=== PATIENT | male | born 1975 | race Caucasian/White ===

== ENCOUNTER 2017-03-02 07:30 | Emergency (ER) | payer BC ==
[2017-03-02 07:51] VITALS: O2SAT 98
[2017-03-02] MEDS ORDERED: Hydromorphone 1 mg/ml Ampule IM ONE (08:10)
[2017-03-02] MEDS ORDERED: Phenergan 25 MG INJ IM ONE (08:10)
[2017-03-02] MEDS ORDERED: Phenergan 25 MG INJ ONE (08:13)
[2017-03-02] MEDS ORDERED: Hydromorphone 1 mg/ml Ampule ONE (08:14)
--- NOTE | 2017-03-02 08:15 | ERPHSYRPT ---
- History of Present Illness Time Seen by Provider: 03/02/17 08:00 Source: patient Exam Limitations: clinical condition Patient Subjective Stated Complaint: shoulder pain in both shoulders Triage Nursing Assessment: patient got lawnmower stuck friday in ditch and pushed it out, has history of shoulder issues see ortho dr machado, woke up with right shoulder in pain unable to get comfortable sensitive to palpationm, not able to see abnormalities , able to move but rotation above shoulder level is extremely painful. pulses rpesent bilateral cap refil immediate Physician History: PATIENT WITH A HISTORY OF BILATERAL SHOULDER CHRONIC PAIN, LEFT BICEPS TENDON TEAR IN LEFT SHOULDER, WHILE PUSHING MOWER OUT OF DITCH YESTERDAY DEVELOPED SEVERE PAIN IN RIGHT SHOULDER. HAS HAD MULTIPLE MRI OF HIS RIGHT SHOULDER, OFFER EXPLORATORY SURGERY OF HIS RIGHT SHOULDER BY HIS SURGEON. DENIES FALL ONTO HIS SHOULDER, NUMBNESS, WEAKNESS IN HIS EXTEMITY. Occurred: yesterday Method of Injury: sports injury Quality: constant Severity of Pain-Max: moderate Severity of Pain-Current: moderate Extremities Pain Location: shoulder: right Modifying Factors: Improves With: movement Associated Symptoms: none Allergies/Adverse Reactions: No Known Drug Allergies Allergy (Verified 03/02/17 08:21) Home Medications: Alprazolam [Xanax] 2 mg PO 03/02/17 [History] Aspirin/Calcium Carbonate/Mag [Aspirin Buffered 325 mg Tab] 1 tab PO DAILY 03/02 [History] Atorvastatin Calcium [Lipitor 40Mg] 40 mg PO 03/02/17 [History] Hydrocodone Bit/Acetaminophen [Hydrocodon-Acetaminoph 7.5-325] 1 each PO BID 01/13 [History] Sertraline HCl 50 mg [Zoloft 50 mg Tablet] 50 mg PO 03/02/17 [History] Hx Tetanus, Diphtheria Vaccination/Date Given: Yes Hx Influenza Vaccination/Date Given: No Hx Pneumococcal Vaccination/Date Given: Yes Immunizations Up to Date: Yes - Review of Systems Constitutional: No Symptoms Musculoskeletal: Injury, Joint Pain Neurological: No Symptoms - Past Medical History Pertinent Past Medical History: Yes Cardiac History: Myocardial Infarction ([place]), Other Musculoskeletal History: Other History: Other Other Medical History: heart cath adn stents placed Oct 2012, left shoulder has torn bicep tendon in Aug 2016, right shoulder ongoing issues with multiple mris under - Past Surgical History Past Surgical History: Yes Cardiac: Cardiac Catheterization, Cardiac Stent - Social History Smoking Status: Current every day smoker Drug Use: none - Nursing Vital Signs Nursing Vital Signs: Initial Vital Signs Temperature 98.1 F Temperature Source Oral Pulse Rate 86 Respiratory Rate 18 Blood Pressure [] 133/86 Pain Intensity 9 - Physical Exam General Appearance: alert Abdominal Exam: No guarding Back Exam: No vertebral tenderness Shoulder Exam: normal inspection, limited ROM (HEAD OF BICEPS TENDON), soft tissue tenderness Neuro/Tendon Exam: normal sensation, normal motor functions Mental Status Exam: alert, oriented x 3, cooperative Skin Exam: normal color, warm, dry SpO2: 98 Oxygen Delivery: Room Air - Radiology Exams Right Shoulder X-ray Interpretation: Interpreted by me, Negative, No Fracture (NO DISLOCATION) Ordered Tests: Active Orders 24 hr Category Date Time Status Sling Application STAT Care 03/02/17 08:10 Active SHOULDER Stat Exams 03/02/17 08:09 Completed Medication Summary Discontinued Medications Generic Name Dose Route Start Last Admin Trade Name Rufinoq PRN Reason Stop Dose Admin Hydromorphone HCl 1 mg 03/02/17 08:10 03/02/17 08:15 Hydromorphone 1 Mg/Ml Ampule IM 03/02/17 08:11 1 mg STAT ONE Administration Hydromorphone HCl Confirm 03/02/17 08:14 Hydromorphone 1 Mg/Ml Ampule Administered 03/02/17 08:15 Dose 1 mg .ROUTE .STK-MED ONE Promethazine HCl 25 mg 03/02/17 08:10 03/02/17 08:15 Phenergan 25 Mg Inj IM 03/02/17 08:11 25 mg STAT ONE Administration Promethazine HCl Confirm 03/02/17 08:13 Phenergan 25 Mg Inj Administered 03/02/17 08:14 Dose 25 mg .ROUTE .STK-MED ONE - Progress Progress Note: 03/02/17 09:09 PATIENT GIVEN DILAUDID 1MG/PHENERGAN 25MG IM Counseled pt/family regarding: diagnosis, rad results - Departure Time of Disposition: 09:11 Departure Disposition: Home Clinical Impression: CHRONIC RIGHT SHOULDER PAIN Condition: Stable Critical Care Time: No Referrals: PATRICK QUINONES [Primary Care Provider] - Additional Instructions: WEAR SLING FOR COMFORT FOR 3-4 DAYS THEN REMOVE. CONSULT YOUR PRIMARY CARE PHYSICIAN AND ORTHOPEDIC SURGEON FOR EVALUATION. TORADOL 10MG EVERY 6 HOURS FOR PAIN. Prescriptions: Ketorolac Tromethamine [Toradol] 10 mg PO Q6H PRN PRN #20 tablet PRN Reason: Pain
--- NOTE | 2017-03-02 09:13 | XRAY ---
Indication: Right shoulder pain following lifting lawnmower. Comparison: November 29, 2014. 3 views of the right shoulder again demonstrates normal bones, articulations, and soft tissues.
[2017-03-02 09:21] VITALS: BP 126/87; PULSE 80
== END 2017-03-02 09:20 | disposition home or self-care (01) ==
LOC: ED 07:30
DX: M25.511 Pain in right shoulder (principal)
CPT/HCPCS: 73030; 99284; J1170; J2550

== ENCOUNTER 2017-05-13 16:55 | Emergency (ER) | payer BC ==
[2017-05-13 17:15] LABS: Mean Corpuscular Hemoglobin 33.4 pg (26-32); Mean Platelet Volume 11.2 fl (6-9.5); Platelet Count 251 K/mm3 (150-450); Red Blood Count 4.04 M/mm3 (4.1-5.6); Red Cell Distribution Width 13.2 % (11.5-14.0)
[2017-05-13] MEDS ORDERED: Ativan 1 MG PO ONE (17:31)
[2017-05-13] MEDS ORDERED: Zyprexa Zydis 5 MG PO ONE ×4 (17:31→18:08)
[2017-05-13] MEDS ORDERED: Ativan 1 MG ONE (17:35)
--- NOTE | 2017-05-13 17:39 | ERPHSYRPT ---
- History of Present Illness Time Seen by Provider: 05/13/17 17:06 Source: patient, family ( and [id number]), EMS, police (under ID) Patient Subjective Stated Complaint: PT BROUGHT IN BY POLICE AND EMS DUE TO THIS MORNING PT CALLED [facility] POLICE DEPARTMENT DUE TO NOT ACTING APPROPRIATELY. PT THEN TOOK OFF ON FOOT INTO [facility] AND POLICE HAVE BEEN LOOKING FOR HIM THIS MORNING. PT FOUND BY A [facility] ARRIVAL PT NOT ORIENTED. ACCU CHECK 94. PT STATED TO EMS HE HAS BEEN WALKING AROUND FOR 15 DAYS ON A SPIRITUAL WALK. Triage Nursing Assessment: PT PINK, WARM, MOIST. PT ALERT, NOT ORIENTED TO PLACE AND TIME. PUPILS DILATED. REACTIVE. PT CAN FOLLOW COMMANDS. PT CAN ANSER SIMPLE QUESTIONS. DURING TRAIGE PT WILL HAVE TIMES OF RAMBLING SPEACH. Physician History: CC: talking out of his head Hx: 42 y/o male patient of Dr Quinones and Heather Pacheco counselor. He works at [employer]. Has had recent ID a month ago. Has been off work due to administrative leave. reports he has not slept in the past week. Worse today. Hearing voices. Has been talking about unusual things. He asked for a sandwhich and the started walking. Police were called as he was talking to a tree. Pt states he hears voices. He talks tangentially about brachial compresses. He thinks year is 2020. Denies injury. Slight headache. No vomiting or diarrhea. No chest or abd pain. denies hx of this in the past. Not thought to use drugs. Has not been eating past week. Timing/Duration: week(s) (1) Allergies/Adverse Reactions: No Known Drug Allergies Allergy (Verified 05/13/17 18:34) Home Medications: Alprazolam [Xanax] 2 mg PO UD 03/02/17 [History] Aspirin/Calcium Carbonate/Mag [Aspirin Buffered 325 mg Tab] 1 tab PO DAILY 03/02 [History] Atorvastatin Calcium [Lipitor 40Mg] 40 mg PO DAILY 03/02/17 [History] Hydrocodone Bit/Acetaminophen [Hydrocodon-Acetaminoph 7.5-325] 1 each PO BID 01/13 [History] Sertraline HCl 50 mg [Zoloft 50 mg Tablet] 50 mg PO DAILY 03/02/17 [History] Hx Tetanus, Diphtheria Vaccination/Date Given: Yes (UP TO DATE) Hx Influenza Vaccination/Date Given: No Hx Pneumococcal Vaccination/Date Given: No Immunizations Up to Date: Yes - Past Medical History Pertinent Past Medical History: Yes Cardiac History: Coronary Artery Disease, Hypertension Musculoskeletal History: Other History: Other Other Medical History: heart cath adn stents placed Oct 2012, left shoulder has torn bicep tendon in Aug 2016, right shoulder ongoing issues with multiple mris under - Past Surgical History Past Surgical History: Yes Cardiac: Cardiac Catheterization, Cardiac Stent - Social History Smoking Status: Current every day smoker How long have you smoked: 30 Exposure to second hand smoke: No Drug Use: none Patient Lives Alone: No ([employer] Install[employer]) - Review of Systems Constitutional: No Fever, No Chills Eyes: No Symptoms Ears, Nose, & Throat: No Symptoms Respiratory: No Cough, No Dyspnea Cardiac: No Chest Pain Abdominal/Gastrointestinal: No Abdominal Pain, No Nausea, No Vomiting, No Diarrhea Musculoskeletal: No Back Pain, No Neck Pain, No Fall, No Injury Skin: No Rash Neurological: Headache (slight), No Focal Weakness Psychological: Emotional Lability, Hallucinations, Memory Loss, No Alcohol Abuse , No Drug Abuse, No Suicidal Ideations All Other Systems: Reviewed and Negative - Nursing Vital Signs Nursing Vital Signs: Initial Vital Signs Temperature 98.8 F 05/13/17 17:00 Pulse Rate 85 05/13/17 17:00 Respiratory Rate 20 05/13/17 17:00 Blood Pressure 128/75 05/13/17 17:00 O2 Sat by Pulse Oximetry 96 05/13/17 17:00 Pain Scale Pain Intensity 0 - Physical Exam General Appearance: alert, other (anxious appearing, moving a lot) Eyes, Ears, Nose, Throat Exam: normal ENT inspection, moist mucous membranes Neck Exam: normal inspection, non-tender, supple Respiratory Exam: normal breath sounds, lungs clear Cardiovascular Exam: regular rate/rhythm Gastrointestinal/Abdominal Exam: soft, No tenderness, No distention Current Suicidality: denies suicide plan Neurological Exam: alert, anxious Appearance: impaired insight Behavior/Eye Contact/Speech: alert & cooperative Thoughts/Hallucinations: auditory hallucinations, delusions, flight of ideas, paranoid Skin Exam: warm, dry, No rash SpO2 Interpretation: normal SpO2: 96 Oxygen Delivery: Room Air - Course Nursing assessment & vital signs reviewed: Yes - CT Exams head CT Interpretation: Tele-radiologist Report (tiny right external capsule lacunar infarct, remaining head CT negative) Ordered Tests: Active Orders 24 hr Category Date Time Status Cause Analyst STAT Care 05/13/17 19:15 Active Clean Catch Urine Specimen STAT Care 05/13/17 17:06 Active EKG-ER Only STAT Care 05/13/17 19:15 Active IV Insertion STAT Care 05/13/17 17:31 Active HEAD WITHOUT CONTRAST [CT] Stat Exams 05/13/17 17:31 Taken BLOOD CULTURE Stat Lab 05/13/17 18:18 Received CBC W DIFF Stat Lab 05/13/17 17:00 Completed CK-Creatinine Phosphokinase Stat Lab 05/13/17 17:00 Completed CMP Stat Lab 05/13/17 17:00 Completed CSF GLUCOSE Stat Lab 05/13/17 18:14 Ordered CSF PROTEIN Stat Lab 05/13/17 18:14 Ordered CSF, CELL COUNT Stat Lab 05/13/17 18:14 Ordered CULTURE,CSF Stat Lab 05/13/17 18:14 Uncollected CULTURE,URINE Stat Lab 05/13/17 17:31 Received ETHYL ALCOHOL Stat Lab 05/13/17 17:00 Completed Lactic Acid Stat Lab 05/13/17 17:41 Results Manual Differential NC Stat Lab 05/13/17 17:00 Completed UA W/ MICROSCOPIC Stat Lab 05/13/17 17:31 Completed Urine Triage Profile Stat Lab 05/13/17 17:31 Completed Medication Summary Generic Name Dose Route Start Last Admin Trade Name Freq PRN Reason Stop Dose Admin Sodium Chloride 1,000 mls @ 200 mls/hr 05/13/17 17:45 05/13/17 17:35 Sodium Chloride 0.9% 1000 Ml IV 06/12/17 17:44 200 mls/hr .Q5H SALVATORE Administration Sodium Chloride 1,000 mls @ 200 mls/hr 05/13/17 19:00 05/13/17 19:23 Sodium Chloride 0.9% 1000 Ml IV 06/12/17 18:59 200 mls/hr .Q5H SALVATORE Administration Chlorpromazine HCl 50 mg/ 102 mls @ 100 mls/hr 05/13/17 19:13 05/13/17 19:23 Sodium Chloride IV 05/13/17 20:14 100 mls/hr STAT ONE Administration Acyclovir Sodium 750 mg/ 100 mls @ 100 mls/hr 05/13/17 19:22 Dextrose IV 05/13/17 20:21 STAT ONE Ceftriaxone Sodium/Dextrose 2 g in 50 mls @ 100 mls/hr 05/13/17 19:22 Rocephin 2 Gm-D5w 50ml Bag IV 05/13/17 19:51 STAT STA Vancomycin HCl 250 mls @ 167 mls/hr 05/13/17 19:22 Vancomycin 1gm/ Ns 250ml IV 05/13/17 20:51 STAT ONE Discontinued Medications Generic Name Dose Route Start Last Admin Trade Name Freq PRN Reason Stop Dose Admin Chlorpromazine HCl Confirm 05/13/17 19:18 Thorazine 50 Mg Administered 05/13/17 19:19 Dose 50 mg .ROUTE .STK-MED ONE Sodium Chloride 1,000 mls @ 999 mls/hr 05/13/17 18:13 05/13/17 18:16 Sodium Chloride 0.9% 1000 Ml IV 05/13/17 19:13 999 mls/hr .Q1H1M STA Administration Sodium Chloride Confirm 05/13/17 19:18 Sodium Chloride 0.9% 100 Ml Ivpb Administered 05/13/17 19:19 Dose 100 mls @ ud IV .STK-MED ONE Lorazepam 1 mg 05/13/17 17:31 05/13/17 17:35 Ativan 1 Mg PO 05/13/17 17:32 1 mg STAT ONE Administration Lorazepam Confirm 05/13/17 17:35 Ativan 1 Mg Administered 05/13/17 17:36 Dose 1 mg .ROUTE .STK-MED ONE Lorazepam 1 mg 05/13/17 18:07 05/13/17 18:16 Ativan 2 Mg/1 Ml Vial IV 05/13/17 18:08 1 mg STAT ONE Administration Lorazepam Confirm 05/13/17 18:08 Ativan 2 Mg/1 Ml Vial Administered 05/13/17 18:09 Dose 2 mg .ROUTE .STK-MED ONE Olanzapine 5 mg 05/13/17 17:31 05/13/17 17:35 Zyprexa Zydis 5 Mg PO 05/13/17 17:32 5 mg STAT ONE Administration Olanzapine Confirm 05/13/17 17:34 Zyprexa Zydis 5 Mg Administered 05/13/17 17:35 Dose 5 mg PO .STK-MED ONE Olanzapine 5 mg 05/13/17 18:07 05/13/17 18:16 Zyprexa Zydis 5 Mg PO 05/13/17 18:08 5 mg STAT ONE Administration Olanzapine Confirm 05/13/17 18:08 Zyprexa Zydis 5 Mg Administered 05/13/17 18:09 Dose 5 mg PO .STK-MED ONE Lab/Rad Data: Laboratory Result Diagrams 05/13/17 17:00 05/13/17 17:00 Laboratory Results 05/13/17 05/13/17 05/13/17 Range/Units 17:41 17:31 17:31 WBC (4.0-10.5) K/mm3 RBC (4.1-5.6) M/mm3 Hgb (12.5-18.0) gm/dl Hct (42-50) % MCV (78-100) fl MCH (26-32) pg MCHC (32-36) g/dl RDW (11.5-14.0) % Plt Count (150-450) K/mm3 MPV (6-9.5) fl Segmented Neutrophils (36.-66.) % Lymphocytes (Manual) (24-44) % Monocytes (Manual) (0.0-12.0) % Differential Comment Platelet Estimate (NORMAL) Sodium (136-145) mEq/L Potassium (3.5-5.1) mEq/L Chloride (98-107) mEq/L Carbon Dioxide (21-32) mEq/L Anion Gap (5-15) MEQ/L BUN (9-20) mg/dL Creatinine (0.55-1.30) mg/dl Estimated GFR ML/MIN Glucose (70-110) MG/DL Lactic Acid 3.3 H (0.4-2.0) Calcium (8.5-10.1) mg/dL Total Bilirubin (0.2-1.0) mg/dL AST (15-37) U/L ALT (12-78) U/L Alkaline Phosphatase (46-116) U/L Creatine Kinase (39-308) U/L Serum Total Protein (6.4-8.2) gm/dL Albumin (3.4-5.0) g/dL Ur Collection Type VOID Urine Color YELLOW (YELLOW) Urine Appearance CLEAR (CLEAR) Urine pH 5.0 (5-6) Ur Specific Hamilton 1.025 (1.005-1.025) Urine Protein 30 (Negative) Urine Ketones LARGE (NEGATIVE) Urine Blood 50 (0-5) Mayco/ul Urine Nitrite NEGATIVE (NEGATIVE) Urine Bilirubin SMALL (NEGATIVE) Urine Urobilinogen NORMAL (0-1) mg/dL Ur Leukocyte Esterase NEGATIVE (NEGATIVE) Urine Microscopic RBC 2-5 (0-2) /HPF Urine Microscopic WBC 2-5 (0-5) /HPF Ur Epithelial Cells FEW (FEW) /HPF Urine Bacteria MODERATE (NEGATIVE) /HPF Hyaline Casts 2-5 (0-2) /LPF Urine Mucus MANY (NEGATIVE) /HPF Urine Glucose NEGATIVE (NEGATIVE) mg/dL Urine Opiates Level POS. (NEGATIVE) Ur Methadone NEG. (NEGATIVE) Urine Barbiturates NEG. (NEGATIVE) Ur Phencyclidine (PCP) NEG. (NEGATIVE) Urine Amphetamine NEG. (NEGATIVE) U Benzodiazepine Level NEG. (NEGATIVE) Urine Cocaine NEG. (NEGATIVE) Urine Marijuana (THC) NEG. (NEGATIVE) Ethyl Alcohol (0.00-0.01) % Specimen Received 05/13/17 1735 05/13/17 05/13/17 Range/Units 17:00 17:00 WBC 28.0 H* (4.0-10.5) K/mm3 RBC 4.04 L (4.1-5.6) M/mm3 Hgb 13.5 (12.5-18.0) gm/dl Hct 40.4 L (42-50) % MCV 100.0 (78-100) fl MCH 33.4 H (26-32) pg MCHC 33.4 (32-36) g/dl RDW 13.2 (11.5-14.0) % Plt Count 251 (150-450) K/mm3 MPV 11.2 H (6-9.5) fl Segmented Neutrophils 86 H (36.-66.) % Lymphocytes (Manual) 10 L (24-44) % Monocytes (Manual) 4 (0.0-12.0) % Differential Comment NORMAL Platelet Estimate NORMAL (NORMAL) Sodium 138 (136-145) mEq/L Potassium 3.4 L (3.5-5.1) mEq/L Chloride 98 (98-107) mEq/L Carbon Dioxide 20.6 L (21-32) mEq/L Anion Gap 22.9 H (5-15) MEQ/L BUN 15 (9-20) mg/dL Creatinine 1.00 (0.55-1.30) mg/dl Estimated GFR > 60 ML/MIN Glucose 77 (70-110) MG/DL Lactic Acid (0.4-2.0) Calcium 9.8 (8.5-10.1) mg/dL Total Bilirubin 0.70 (0.2-1.0) mg/dL AST 25 (15-37) U/L ALT 28 (12-78) U/L Alkaline Phosphatase 102 (46-116) U/L Creatine Kinase 184 (39-308) U/L Serum Total Protein 8.4 H (6.4-8.2) gm/dL Albumin 4.6 (3.4-5.0) g/dL Ur Collection Type Urine Color (YELLOW) Urine Appearance (CLEAR) Urine pH (5-6) Ur Specific Hamilton (1.005-1.025) Urine Protein (Negative) Urine Ketones (NEGATIVE) Urine Blood (0-5) Mayco/ul Urine Nitrite (NEGATIVE) Urine Bilirubin (NEGATIVE) Urine Urobilinogen (0-1) mg/dL Ur Leukocyte Esterase (NEGATIVE) Urine Microscopic RBC (0-2) /HPF Urine Microscopic WBC (0-5) /HPF Ur Epithelial Cells (FEW) /HPF Urine Bacteria (NEGATIVE) /HPF Hyaline Casts (0-2) /LPF Urine Mucus (NEGATIVE) /HPF Urine Glucose (NEGATIVE) mg/dL Urine Opiates Level (NEGATIVE) Ur Methadone (NEGATIVE) Urine Barbiturates (NEGATIVE) Ur Phencyclidine (PCP) (NEGATIVE) Urine Amphetamine (NEGATIVE) U Benzodiazepine Level (NEGATIVE) Urine Cocaine (NEGATIVE) Urine Marijuana (THC) (NEGATIVE) Ethyl Alcohol < 0.010 (0.00-0.01) % Specimen Received - Progress Progress Note: 05/13/17 18:25 He was given ativan and zyprexa. IVF bolus. He is more agitated, talking out of his head. Low grade fever. Will need lumbar puncture. Consent from . May need ketamine desation if worsens. 05/13/17 18:45 He is on asa and plavix for heart stent. Unsure last dose but likely early this AM. He will need transfer for neuro and psychiatry. Paged Dr Vega at [facility] to consider transfer and further treatment. 05/13/17 19:30 He seemed to worse with ativan. Will hold on LP as he is on asa and plavix. Called Dr Vega hospitalist at [facility] where neurology and psychiatry are available. HE advised cover with abtx, transfer to [facility] ER for reassessment and possible stat brain MRI. Spoke to Dr Garcia who accepts transfer to [facility] ER. Discussed plan and she agrees and accepts. informed of condition and plan. No muscle rigidity to suggest serotonin syndrome or malignant hyperthermia. Unsure if this is toxin induced, primary psychosis or encephalitis. Counseled pt/family regarding: lab results, diagnosis, need for follow-up, rad results - Departure Time of Disposition: 19:32 Departure Disposition: Transfer ([facility] ER) Clinical Impression: Acute psychosis, Encephalitis Condition: Serious Critical Care Time: Yes Critical Care Time(excluding separately billable procedures): 30-74 minutes Referrals: PATRICK QUINONES [Primary Care Provider] -
[2017-05-13 17:43] LABS: ALBUMIN 4.6 g/dL (3.4-5.0); ALKALINE PHOSPHATASE 102 U/L (46-116); ANION GAP 22.9 MEQ/L (5-15); BLOOD UREA NITROGEN 15 mg/dL (9-20); CHLORIDE 98 mEq/L (98-107); Carbon Dioxide 20.6 mEq/L (21-32); Glucose 77 MG/DL (70-110); Potassium 3.4 mEq/L (3.5-5.1); SGOT/AST 25 U/L (15-37); SGPT/ALT 28 U/L (12-78); SODIUM 138 mEq/L (136-145); Total Protein 8.4 gm/dL (6.4-8.2)
[2017-05-13 17:44] LABS: ETHYL ALCOHOL < 0.010 % (0.00-0.01)
[2017-05-13] MEDS ORDERED: Sodium Chloride 0.9% 1000 ML 1,000 ML IV SCH ×2 (17:45→19:00)
[2017-05-13 17:57] LABS: Lactic Acid 3.3 (0.4-2.0)
[2017-05-13 18:01] LABS: Bacteria MODERATE /HPF (NEGATIVE); Bilirubin SMALL (NEGATIVE); Blood 50 Ery/ul (0-5); COMPLETE URINE MICROSCOPIC? YES; Collection Type VOID; Epithelial Cells FEW /HPF (FEW); Glucose NEGATIVE (NEGATIVE); Leukocyte Esterase NEGATIVE (NEGATIVE); Mucus MANY /HPF (NEGATIVE)
[2017-05-13 18:02] LABS: ADD URINE CULTURE? YES (NO)
[2017-05-13] MEDS ORDERED: Ativan 2 MG/1 ML VIAL IV ONE (18:07)
[2017-05-13] MEDS ORDERED: Ativan 2 MG/1 ML VIAL ONE (18:08)
[2017-05-13] MEDS ORDERED: Sodium Chloride 0.9% 1000 ML 1,000 ML IV STA (18:13)
[2017-05-13] MEDS ORDERED: Sodium Chloride 0.9% 1000 ML 1,000 ML ONE ×2 (18:14→19:04)
[2017-05-13 18:59] LABS: Total Cells Counted 100
[2017-05-13 19:00] LABS: Platelet Estimate NORMAL (NORMAL)
[2017-05-13] MEDS ORDERED: THORAZINE 50 MG*** 50 MG in Sodium Chloride 0.9% 100 ML IVPB 100 ML IV ONE (19:13)
[2017-05-13] MEDS ORDERED: THORAZINE 50 MG ONE (19:18)
[2017-05-13] MEDS ORDERED: Sodium Chloride 0.9% 100 ML IVPB 100 ML IV ONE (19:18)
[2017-05-13] MEDS ORDERED: ROCEPHIN 2 Gm-D5w 50ML BAG** 2 G/50 ML IVPB IV STA (19:22)
[2017-05-13] MEDS ORDERED: ZOVIRAX IV ONE (19:22)
[2017-05-13] MEDS ORDERED: Vancomycin 1GM/ Ns 250ML*** 250 ML IV ONE ×2 (19:22→19:52)
[2017-05-13] MEDS ORDERED: D5W MINI IV ONE (19:22)
[2017-05-13] MEDS ORDERED: ROCEPHIN 2 Gm-D5w 50ML BAG** 2 G/50 ML IVPB IV ONE (19:30)
[2017-05-13 20:51] VITALS: BP 118/74; PULSE 108; O2SAT 97
--- NOTE | 2017-05-14 08:30 | XRAY ---
Indication: Confusion. Multiple contiguous axial images obtained through the head without contrast. Comparison: None There is a tiny lacunar infarct in the right external capsule. No acute intracranial hemorrhage, abnormal extra axial fluid collection, or mass effect. Fourth ventricle is midline without hydrocephalus. Baer-white matter differentiation preserved. Bony calvarium intact. Visualized paranasal sinuses and mastoid air cells are clear. Impression: Right external capsule lacunar infarct. No acute intracranial abnormalities. CTDI 70.21
== END 2017-05-13 20:50 | disposition short-term general hospital (02) ==
LOC: ED 16:55
DX: F23 Brief psychotic disorder (principal); G04.90 Encephalitis and encephalomyelitis, unspecified; Z79.899 Other long term (current) drug therapy; Z79.891 Long term (current) use of opiate analgesic
CPT/HCPCS: 36000; 36415; 70450; 80053; 80307; 81000; 82550; 83605; 85025; 87040; 87086; 93005; 93041; 96360; 96361; 96365; 96366; 96374; 99285; G0481; J0133; J0696; J2060; J3230; J3370; A9270-GY